=== PATIENT | female | born 1955 | race Caucasian/White ===

== ENCOUNTER 2019-12-29 16:54 | Inpatient (IN) | payer BC ==
[~2019-12-29] VITALS: Ht 154.9 cm; Wt 50.3 kg
[2019-12-29] MEDS: NICOTINE 21MG/24HR 1 EA TRANSDERMAL TD SCH (09:00)
--- NOTE | 2019-12-29 17:53 | REPVR ---
PROCEDURE INFORMATION: Exam: XR Chest, 1 View Exam date and time: 12/29/2019 5:28 PM Age: 64 years old Clinical indication: Chest pain; Additional info: Dyspnea/cough TECHNIQUE: Imaging protocol: XR of the chest Views: 1 view. COMPARISON: No relevant prior studies available. FINDINGS: Lungs: Unremarkable. No consolidation. Pleural space: Unremarkable. No pleural effusion. No pneumothorax. Heart/Mediastinum: Cardiomegaly. Bones/joints: Unremarkable. IMPRESSION: 1. Cardiomegaly. 2. No acute findings. Electronically signed by: Jerod Wilson On 12/29/2019 17:53:16 PM
[2019-12-29 17:54] LABS: BASO % 0.1 % (0.0-1.0); EOS % 0.1 % (0.0-3.0); HEMATOCRIT 39.2 % (36.0-47.0); HEMOGLOBIN 14.3 g/dl (12.0-15.5); LYMPH # 1.7 10^3/uL (1.5-5.0); MEAN CORPUSCULAR HEMOGLOBIN 32.6 pg (27.0-33.0); MEAN CORPUSCULAR HGB CONC 36.5 g/dl (32.0-36.5); MEAN CORPUSCULAR VOLUME 89.5 fl (80.0-96.0); MONO # 0.8 10^3/uL (0.0-0.8); MONO % 4.5 % (0.0-5.0); NEUTROPHILS # 14.3 10^3/uL (1.5-8.5); NEUTROPHILS % 84.5 % (36.0-66.0); PLATELET COUNT, AUTOMATED 399 10^3/uL (150-450); RED BLOOD COUNT 4.38 10^6/uL (4.00-5.40)
[2019-12-29] MEDS ORDERED: POTASSIUM CHLORIDE 10 MEQ SR TABLET PO ONE (18:00)
[2019-12-29] MEDS ORDERED: NS 1,000 ML IV SCH (18:00)
[2019-12-29] MEDS ORDERED: PRED20TA PO (18:11)
[2019-12-29] MEDS ORDERED: LISI20TA35 PO (18:11)
[2019-12-29] MEDS ORDERED: DOXY100C PO (18:11)
[2019-12-29] MEDS ORDERED: SYMB16INH INH (18:11)
[2019-12-29] MEDS ORDERED: ALBU8.5H INH (18:11)
[2019-12-29] MEDS ORDERED: BUPR150T5 PO (18:11)
[2019-12-29] MEDS ORDERED: ISOS60TA2 PO (18:11)
[2019-12-29] MEDS ORDERED: ALBU83IN INH (18:11)
[2019-12-29] MEDS ORDERED: NICO1DIS10 TOP (18:11)
[2019-12-29] MEDS ORDERED: CARV25TA PO (18:11)
[2019-12-29] MEDS ORDERED: AMLO1TAB24 PO (18:11)
[2019-12-29] MEDS ORDERED: ELIQ2.5T PO (18:11)
[2019-12-29] MEDS ORDERED: DRON40TA PO (18:11)
[2019-12-29 18:24] LABS: MAGNESIUM LEVEL 2.3 MG/DL (1.8-2.4); THYROID STIMULATING HORMONE 0.207 uIU/ML (0.358-3.740)
[2019-12-29] MEDS ORDERED: NICO21DI31 TD (18:33)
[2019-12-29] MEDS ORDERED: ACET25TA12 PO (18:33)
[2019-12-29 18:42] LABS: OSMOLALITY SERUM 261 MOSM/KG (280-301)
[2019-12-29] MEDS ORDERED: MAALOX 30 ML SUSP *UDC PO PRN (19:30)
[2019-12-29] MEDS ORDERED: MOM 30ML SUSPENSION UDC PO PRN (19:30)
[2019-12-29] MEDS ORDERED: ACETAMINOPHEN TAB 650MG DOSE (2X325MG) PO PRN (19:30)
--- NOTE | 2019-12-29 19:37 | HPEPDOC ---
[facility] Medical History & Physical Date of Admission Dec 29, 2019 Date of Service: Dec 29, 2019 Other Provider Niki Meeks Attending Physician: DYLAN GRIFFIN MD History and Physical TIME OF SERVICE: 8:10 PM CHIEF COMPLAINT:, Shortness of breath HISTORY OF PRESENT ILLNESS: This 64-year-old female presented to her primary care provider's office for evaluation of worsening, shortness of breath. At her baseline she has shortness of breath and a dry cough due to COPD. Over the last 10 days the shortness of breath has become so severe that she has difficulties talking without having to pause to take a breath and her cough is now productive of yellow sputum. She also has mid, 8 out of 10 in severity, chest pain that's worse when she coughs, nausea, muscle aches, poor appetite, admits to being less active than usual. She denies having fevers, chills, vomiting, diarrhea, runny nose, sick contacts or swelling in any of her legs, falling or having seizures. She was last hospitalized for acute COPD of 2018 at [facility] and was told she had hyponatremia but is not sure what the cause was. REVIEW OF SYSTEMS: 12 point review of systems negative except as listed in HPI PAST MEDICAL/ SURGICAL HISTORY: COPD She was last hospitalized in October 2018 Atrial fibrillation on Eliquis Cardiomyopathy Left bundle-branch block Chronic hypertension Plantar fasciitis Cervical spine surgery Rotator cuff surgery SOCIAL HISTORY: She currently smokes She doesn't drink alcohol She doesn't do drugs She moved to the area in June FAMILY HISTORY: Cancer CVA CAD Diabetes ALLERGIES: Please see below. HOME MEDICATIONS: Please see below. PHYSICAL EXAMINATION: Vital Signs Date Time Temp Pulse Resp B/P (MAP) Pulse Ox O2 Delivery O2 Flow Rate FiO2 12/29/19 16:56 97.9 41 18 166/84 (111) 98 Room Air GEN: well nourished / well developed/ NAD INTEGUMENT: She doesn't have facial plethora HEENT: lips are not cyanotic / She doesn't have pursed lip breathing / trachea midline CVS: RRR/ no P-pulmonale / distant heart sounds / radial pulses equal and intact bilaterally / no lower extremity edema LUNGS: there is no nasal flaring / she is currently not able to speak full sentences without stopping to take a breath / she is not using accessory muscles / there is normal respiratory expansion/ her breath sounds are diminished ABDOMEN: flat / soft & not tender with palpation MSK/EXTREMITIES: NCAT / no finger nail clubbing / chest pain not reproducible w palpation of the chest NEURO: CN 2-12 are grossly intact / speech is not dysarthric PSYCH: alert and or iented to person place and time/ able to understand and follow all commands LABORATORY DATA: 12/29/19 17:41 Immature Granulocyte % (Auto) 0.8, Neutrophils (%) (Auto) 84.5H, Lymphocytes (%) (Auto) 10.0L, Monocytes (%) (Auto) 4.5, Eosinophils (%) (Auto) 0.1, Basophils (%) (Auto) 0.1, Neutrophils # (Auto) 14.3H, Lymphocytes # (Auto) 1.7, Monocytes # (Auto) 0.8, Eosinophils # (Auto) 0.0, Basophils # (Auto) 0.0, Nucleated Red Blood Cells % (auto) 0.0, Osmolality 261L, Magnesium Level 2.3, Thyroid S timulating Hormone (TSH) 0.207L 12/29/19 17:44: POC Glucose (Misc Panel) 110H, POC Sodium (Misc Panel) 124L, POC Potassium (Misc Panel) 3.2L, POC Chloride (Misc Panel) 84L, POC Total CO2 (Misc Panel) 26.0, POC Blood Urea Nitrogen (Misc Panel 20, POC Ionized Calcium (Misc Panel) 4.2L, POC Creatinine (Misc Panel) 0.8, POC Hematocrit (Misc Panel) 43.0 12/29/19 17:52: POC Troponin I (Misc) 0.00 IMAGING: Chest xray "IMPRESSION: 1. Cardiomegaly. 2. No acute findings." MICROBIOLOGY: n/a ASSESSMENT: Ms. Magallon is a 63-year-old female with a history of COPD, atrial fibrillation, cardiomyopathy, LBBB, HTN, and chronic hyponatremia who will be admitted for evaluation of hyponatremia and management of acute COPD. PLAN: 1. Chronic Asymptomatic Hyponatremia She is euvolemic and has hypotonic hyponatremia, with serum osmolality <280 Since her urine Na > 20 this points towards renal salt loss in the setting of diuretic use or ACEI She is currently on HTCZ and an ACEI Plan: admit to med surg/ frequent neurochecks / f/u Is/ Os / stop 0.9% NS pending repeat BMP / stop lisinopril/HTCZ / the day time team may consider a Nephrology consult if her Na doesn't improve with holding this meds / placed request for staff to obtain records from [facility] 2. Mild Acute COPD Cause TBD Per pt and ER staff COVID-19 test done at an outside facility was negative PNA r/o as trigger bc her chest xray is normal PE less likely bc she hasn't had leg swelling and is on AC BAP-65 Score to predict mortality in acute COPD = Class I = 0.3% in hospital mortality Plan: f/u sputum cx / supplemental O2 / elevated HOB/ aspiration precautions / Dunebs Q6H, Albuterol Q4HP/ solumedrol now then switch to Prednisone + PPI tomorrow / will give Levofloxacin because the patient has a change in sputum co lizeth / Tessalon Pearls / the day time team can refer her to [employer] [facility] [facility] locally to establish care and for PFTs / will place a referral for Pulmonary Rehab which has been shown to reduce mortality if she attends within 90 days of discharge 3. Chest Pain Likely pleuritic EKG showed LBBB w frequent PVCs He has a hx of LBBB Plan: telemetry / f/u EKG, trops 4. Hypokalemia Elizabeth 2/2 increased albuterol use She received KCl in the ER Plan: f/u K & Mag 5. Leukocytosis Likely 2/2 steroids Plan: monitor vitals and f/u repeat CBC 6. Atrial fibrillation Plan: c/w Elquis 7. Chronic hypertension Plan: increase doses amlodipine from 5 daily to 10mg daily & carvedilol from 25 BID to 50 BID / hold HTCZ and lisinopril DVT PROPHYLAXIS: n/a on AC DISPOSITION: elizabeth home after more than 2 midnight's stay Home Medications Scheduled Acetaminophen/Diphenhydramine (Acetaminophen Pm Caplet) 1 Each Tablet, 3 TAB PO QHS Amlodipine Besylate (Amlodipine Besylate) 5 Mg Tablet, 5 MG PO DAILY Apixaban (Eliquis) 2.5 Mg Tablet, 2.5 MG PO BID Budesonide/Formoterol (Symbicort 160-4.5 Mcg Inhaler) 6 Gm Hfa.aer.ad, 2 PUFFS INH BID Bupropion Hcl (Bupropion HCl Sr) 150 Mg Tab.sr.12h, 150 MG PO BID Carvedilol (Carvedilol) 25 Mg Tablet, 25 MG PO BID Doxycycline Hyclate (Doxycycline Hyclate) 100 Mg Capsule, 100 MG PO BID FOR 10 DAYS, STARTED 12/27 Dronedarone (Multaq) 400 Mg Tablet, 400 MG PO BID Isosorbide Mononitrate (Isosorbide Mononitrate ER) 60 Mg Tab.er.24h, 60 MG PO DAILY Lisinopril/Hydrochlorothiazide (Lisinopril-Hctz 20-12.5 mg Tab) 1 Each Tablet, 1 TAB PO DAILY Prednisone (Prednisone) 20 Mg Tablet, 1 DOSE PO TAPER 60MG DAILY X 3 DAYS 40MG DAILY X 3 DAYS 20MG DAILY X 3 DAYS STARTED 12/27 Scheduled PRN Albuterol Sulf (Albuterol Sulfate) 2.5 Mg/3 Ml Vial.neb, 1 VIAL INH Q6H PRN for SHORTNESS OF BREATH Albuterol Sulfate (Albuterol Sulfate Hfa) 8.5 Gm Hfa.aer.ad, 1 PUFF INH QID PRN for SOB/COUGH Nicotine (Nicotine Patch) 21 Mg Patch.td24, 21 MG TD DAILY PRN for NICOTINE WITHDRAWAL Allergies Coded Allergies: adhesive (Verified Allergy, Intermediate, RED WELTS, 12/29/19) naproxen (Verified Allergy, Intermediate, HIVES, 12/29/19) aspirin (Verified Adverse Reaction, Mild, nausea/vomiting, 12/29/19) oxycodone (Verified Adverse Reaction, Mild, N/V, 12/29/19) A-FIB/CHADSVASC A-FIB History Current/History of A-Fib/PAF?: No Current PO Anticoag Therapy: No DYLAN GRIFFIN MD Dec 29, 2019 19:37
[2019-12-29 20:03] LABS: OSMOLALITY URINE 154 MOSM/KG (500-800)
[2019-12-29 20:11] LABS: SODIUM,RANDOM URINE 28 MEQ/L
[2019-12-29 20:15] LABS: BLOOD UREA NITROGEN 20 MG/DL (7-18); CALCIUM LEVEL 9.4 MG/DL (8.8-10.2); CARBON DIOXIDE LEVEL 30 MEQ/L (21-32); CHLORIDE LEVEL 88 MEQ/L (98-107); CREATININE FOR GFR 0.83 MG/DL (0.55-1.30); GLOMERULAR FILTRATION RATE > 60.0 (>45); GLUCOSE, FASTING 106 MG/DL (70-100); POTASSIUM SERUM 3.5 MEQ/L (3.5-5.1); SODIUM LEVEL 125 MEQ/L (136-145)
[2019-12-29] MEDS ORDERED: RAMELTEON 8 MG TAB (ROZEREM) PO PRN (20:30)
[2019-12-29] MEDS ORDERED: ALBUTEROL SULFATE 2.5 MG/0.5 ML INH NEB SOLN NEB PRN (20:30)
[2019-12-29 20:37] LABS: CREATININE,RANDOM URINE < 13.0 MG/DL
[2019-12-29] MEDS: IPRATROPIUM 0.5MG/ALBUTEROL 2.5MG INH SOL UD 3ML (DUONEB) NEB SCH (20:54)
[2019-12-29] MEDS ORDERED: methylPREDNISolone 125MG 2ML VIAL IV ONE (21:00)
[2019-12-29] MEDS ORDERED: BENZONATATE 100 MG CAP PO PRN (21:00)
[2019-12-29] MEDS ORDERED: CARVedilol 12.5 MG TAB PO SCH (21:00)
[2019-12-29] MEDS: APIXABAN 2.5 MG TAB (ELIQUIS) PO SCH (21:26)
[2019-12-29] MEDS: CARVedilol 12.5 MG TAB PO SCH (21:26)
[2019-12-29 22:11] LABS: BLOOD UREA NITROGEN 16 MG/DL (7-18); CALCIUM LEVEL 9.2 MG/DL (8.8-10.2); CARBON DIOXIDE LEVEL 28 MEQ/L (21-32); CHLORIDE LEVEL 90 MEQ/L (98-107); CREATININE FOR GFR 0.84 MG/DL (0.55-1.30); GLOMERULAR FILTRATION RATE > 60.0 (>45); GLUCOSE, FASTING 159 MG/DL (70-100); POTASSIUM SERUM 3.2 MEQ/L (3.5-5.1); SODIUM LEVEL 127 MEQ/L (136-145); TROPONIN I < 0.02 NG/ML (< 0.10)
[2019-12-29 22:30] VITALS: BP 115/62
[2019-12-29] MEDS: DRONEDARONE 400 MG TAB (MULTAQ) PO SCH (23:44)
[2019-12-29] MEDS: buPROPion **SR TABLET** (ZYBAN) 150MG PO SCH (23:44)
[2019-12-30] MEDS ORDERED: POTASSIUM CHLORIDE 10 MEQ SR TABLET PO ONE (03:30)
[2019-12-30 04:00] VITALS: BP 117/65
[2019-12-30] MEDS: IPRATROPIUM 0.5MG/ALBUTEROL 2.5MG INH SOL UD 3ML (DUONEB) NEB SCH ×3 (04:34→13:23)
[2019-12-30 05:41] LABS: HEMATOCRIT 36.7 % (36.0-47.0); HEMOGLOBIN 13.1 g/dl (12.0-15.5); MEAN CORPUSCULAR HEMOGLOBIN 32.5 pg (27.0-33.0); MEAN CORPUSCULAR HGB CONC 35.7 g/dl (32.0-36.5); MEAN CORPUSCULAR VOLUME 91.1 fl (80.0-96.0); PLATELET COUNT, AUTOMATED 320 10^3/uL (150-450); RED BLOOD COUNT 4.03 10^6/uL (4.00-5.40)
[2019-12-30] MEDS ORDERED: LevoFLOXacin 750 MG TABLET PO SCH (06:00)
[2019-12-30 06:10] LABS: BLOOD UREA NITROGEN 13 MG/DL (7-18); CALCIUM LEVEL 9.1 MG/DL (8.8-10.2); CARBON DIOXIDE LEVEL 27 MEQ/L (21-32); CHLORIDE LEVEL 93 MEQ/L (98-107); CREATININE FOR GFR 0.73 MG/DL (0.55-1.30); GLOMERULAR FILTRATION RATE > 60.0 (>45); GLUCOSE, FASTING 178 MG/DL (70-100); MAGNESIUM LEVEL 2.2 MG/DL (1.8-2.4); POTASSIUM SERUM 3.7 MEQ/L (3.5-5.1); SODIUM LEVEL 128 MEQ/L (136-145); TROPONIN I < 0.02 NG/ML (< 0.10)
[2019-12-30] MEDS: NICOTINE 21MG/24HR 1 EA TRANSDERMAL TD SCH ×2 (08:36→09:00)
[2019-12-30 08:37] VITALS: BP 117/65
[2019-12-30] MEDS: APIXABAN 2.5 MG TAB (ELIQUIS) PO SCH (08:37)
[2019-12-30] MEDS: buPROPion **SR TABLET** (ZYBAN) 150MG PO SCH (08:37)
[2019-12-30] MEDS: CARVedilol 12.5 MG TAB PO SCH (08:38)
[2019-12-30] MEDS: DRONEDARONE 400 MG TAB (MULTAQ) PO SCH (08:38)
[2019-12-30] MEDS ORDERED: PANTOPRAZOLE 40MG TAB (PROTONIX) PO SCH (09:00)
[2019-12-30] MEDS ORDERED: predniSONE 20 MG TAB PO SCH (09:00)
[2019-12-30] MEDS ORDERED: ISOSORBIDE MON. (IMDUR) 60 MG XR TAB PO SCH (09:00)
[2019-12-30] MEDS ORDERED: ENOXAPARIN 40MG/0.4ML SYRINGE (J1650 PER 10MG) SC SCH (09:00)
[2019-12-30] MEDS ORDERED: amLODIPine 5 MG TAB PO SCH ×2 (09:00)
--- NOTE | 2019-12-30 09:15 | ECGEPIP ---
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
[2019-12-30 09:43] LABS: CORTISOL AM 14.4 UG/DL (4.3-22.4)
[2019-12-30] MEDS ORDERED: CARV25TA PO (10:06)
[2019-12-30] MEDS ORDERED: BENZ-18 PO (10:06)
--- NOTE | 2019-12-30 19:05 | DS.PDOC ---
Discharge Summary General Date of Admission Dec 29, 2019 at 19:30 Date of Discharge Dec 30, 2019 Attending Physician: MAKEDA ARGUELLES DO Discharge Summary PROCEDURES PERFORMED DURING STAY: None. ADMITTING DIAGNOSES: 1. Hyponatremia. 2. COPD exacerbation 3. Hypokalemia 4. Chest pain 5. Leukocytosis 6. A. fib 7. Hypertension DISCHARGE DIAGNOSES: 1. Hyponatremia. 2. COPD exacerbation 3. Hypokalemia 4. Noncardiac chest pain 5. Steroid induced leukocytosis 6. A. fib 7. Hypertension COMPLICATIONS/CHIEF COMPLAINT: Hyponatremia. HISTORY OF PRESENT ILLNESS: Mrs. Magallon is a 64-year-old female who presented to her primary care provider's office for evaluation of dyspnea. For the past 10 days she's been having worsening dyspnea with a cough that is now productive, producing yellow sputum. She also has 8 out of 10 chest pain that is worse when she coughs. She also complains of muscle aches, poor appetite, and fatigue. She is given a dose of IV Solu-Medrol. HOSPITAL COURSE: During her admission, the lisinopril/hydrochlorothiazide combination was discontinued. Her sodium slowly started to improve. In addition her hypokalemia was corrected. This morning she is feeling well. Dyspnea and cough improved. We discussed hyponatremia and hydrochlorothiazide. Recommended that she does not continue lisinopril/hydrochlorothiazide combination. While here she was on an increased dose of Coreg. She is concerned of a cough associated with an increased dose. Her blood pressure was on the lower side, so I decreased her dose on discharge. She denied any fever or chills, lightheadedness or dizziness, chest pain, abdominal pain, dysuria, or diarrhea. She felt ready for home and was subsequently discharged. DISCHARGE MEDICATIONS: Please see below. ALLERGIES: Please see below. PHYSICAL EXAMINATION ON DISCHARGE: VITAL SIGNS: Please see below. GENERAL: Comfortable, in no apparent distress. HEENT: Head normocephalic/atraumatic, EOMI, sclera clear. NECK: Supple RESPIRATORY: Coarse breath sounds CARDIOVASCULAR: Regular rate and rhythm. ABDOMEN: Soft, nontender, no guarding or rebound tenderness. Normal bowel sounds. MUSCLE SKELETAL: Muscle strength 5/5 in all extremities. NEUROLOGICAL: CN 312 grossly intact, no focal deficits noted. PSYCHOLOGICAL: Normal mood and affect LABORATORY DATA: Please see below. IMAGING: Chest x-ray 1. Cardiomegaly. 2. No acute findings PROGNOSIS: Stable ACTIVITY: As tolerated. DIET: Regular DISCHARGE PLAN: Home DISPOSITION: 01 Home, Self-Care. DISCHARGE INSTRUCTIONS: 1. With her PCP within a week 2. Do not take the lisinopril/hydrochlorothiazide combination 3. Can continue taking steroids and doxycycline at home. DISCHARGE CONDITION: Stable. Total time spent on discharge planning discharge summary and med reconciliation 35 minutes Vital Signs/I&Os Vital Signs Date Time Temp Pulse Resp B/P (MAP) Pulse Ox O2 Delivery O2 Flow Rate FiO2 12/30/19 08:38 60 12/30/19 08:37 117/65 12/30/19 04:00 97.8 18 96 Room Air I&O- Last 24 Hours up to 6 AM 12/30/19 06:00 Intake Total 1080 ml Output Total 1525 ml Balance -445 ml Laboratory Data Labs 24H Laboratory Tests 2 12/29/19 19:41: Urine Random Osmolality 154L, Urine Random Creatinine < 13.0, Urine Random Sodium 28 12/29/19 21:21: Anion Gap 9, Glomerular Filtration Rate > 60.0, Calcium Level 9.2, Troponin I < 0.02 12/30/19 05:25: Anion Gap 8, Glomerular Filtration Rate > 60.0, Calcium Level 9.1, Troponin I < 0.02, Nucleated Red Blood Cells % (auto) 0.0, Magnesium Level 2.2, Cortisol AM Sample 14.4 12/30/19 09:20: Troponin I < 0.02 CBC/BMP Laboratory Tests 12/29/19 21:21 12/30/19 05:25 Discharge Medications Scheduled Acetaminophen/Diphenhydramine (Acetaminophen Pm Caplet) 1 Each Tablet, 3 TAB PO QHS, (Reported) Amlodipine Besylate (Amlodipine Besylate) 5 Mg Tablet, 5 MG PO DAILY, (Reported) Apixaban (Eliquis) 2.5 Mg Tablet, 2.5 MG PO BID, (Reported) Budesonide/Formoterol (Symbicort 160-4.5 Mcg Inhaler) 6 Gm Hfa.aer.ad, 2 PUFFS INH BID, (Reported) Bupropion Hcl (Bupropion HCl Sr) 150 Mg Tab.sr.12h, 150 MG PO BID, (Reported) Carvedilol (Carvedilol) 25 Mg Tablet, 25 MG PO BID, (Reported) Doxycycline Hyclate (Doxycycline Hyclate) 100 Mg Capsule, 100 MG PO BID, (Reported) FOR 10 DAYS, STARTED 12/27 Dronedarone (Multaq) 400 Mg Tablet, 400 MG PO BID, (Reported) Isosorbide Mononitrate (Isosorbide Mononitrate ER) 60 Mg Tab.er.24h, 60 MG PO DAILY, (Reported) Prednisone (Prednisone) 20 Mg Tablet, 1 DOSE PO TAPER, (Reported) 60MG DAILY X 3 DAYS 40MG DAILY X 3 DAYS 20MG DAILY X 3 DAYS STARTED 12/27 Scheduled PRN Albuterol Sulf (Albuterol Sulfate) 2.5 Mg/3 Ml Vial.neb, 1 VIAL INH Q6H PRN for SHORTNESS OF BREATH, (Reported) Albuterol Sulfate (Albuterol Sulfate Hfa) 8.5 Gm Hfa.aer.ad, 1 PUFF INH QID PRN for SOB/COUGH, (Reported) Benzonatate (Benzonatate) 100 Mg Capsule, 200 MG PO Q8H PRN for cough Nicotine (Nicotine Patch) 21 Mg Patch.td24, 21 MG TD DAILY PRN for NICOTINE WITHDRAWAL, (Reported) Allergies Coded Allergies: adhesive (Verified Allergy, Intermediate, RED WELTS, 12/29/19) naproxen (Verified Allergy, Intermediate, HIVES, 12/29/19) aspirin (Verified Adverse Reaction, Mild, nausea/vomiting, 12/29/19) oxycodone (Verified Adverse Reaction, Mild, N/V, 12/29/19) MAKEDA ARGUELLES DO Dec 30, 2019 19:05
== END 2019-12-30 14:45 | disposition home or self-care (01) | DRG 140 ==
LOC: M ED 16:54 → M ED INP 19:30 → M PCU 22:27
PROVIDERS: ADMIT Internal Medicine; ATTEND Internal Medicine
DX: J44.1 Chronic obstructive pulmonary disease with (acute) exacerbation (principal); I42.9 Cardiomyopathy, unspecified; I48.91 Unspecified atrial fibrillation; E87.1 Hypo-osmolality and hyponatremia; E87.6 Hypokalemia; I10 Essential (primary) hypertension; D72.829 Elevated white blood cell count, unspecified; R10.9 Unspecified abdominal pain; Z79.899 Other long term (current) drug therapy; Z88.5 Allergy status to narcotic agent; Z88.6 Allergy status to analgesic agent; Z88.8 Allergy status to other drugs, medicaments and biological substances; Z79.01 Long term (current) use of anticoagulants; F17.200 Nicotine dependence, unspecified, uncomplicated; I44.7 Left bundle-branch block, unspecified; M72.2 Plantar fascial fibromatosis

== ENCOUNTER 2020-11-07 20:49 | Emergency (ER) | payer BC ==
[~2020-11-07] VITALS: Ht 153.7 cm; Wt 51.4 kg
[~2020-11-07 20:49] MED LIST: ACET25TA12 PO; ALBU8.5H INH; ALBU83IN INH; AMLO1TAB24 PO; BENZ-18 PO; BUPR150T5 PO; CARV25TA PO; DOXY100C3 PO; DRON400T PO; ELIQ2.5T PO; ISOS1TAB36 PO; LISI20TA35 PO; NICO1DIS10 TOP; NICO1DIS12 TD; PRED20TA PO; SYMB16INH INH
[2020-11-07 21:50] LABS: BASO # 0.1 10^3/uL (0.0-0.2); BASO % 0.8 % (0.0-1.0); EOS # 0.1 10^3/uL (0.0-0.5); HEMATOCRIT 37.1 % (36.0-47.0); HEMOGLOBIN 13.4 g/dl (12.0-15.5); LYMPH # 2.7 10^3/uL (1.5-5.0); LYMPH % 29.7 % (24.0-44.0); MEAN CORPUSCULAR HEMOGLOBIN 32.5 pg (27.0-33.0); MEAN CORPUSCULAR HGB CONC 36.1 g/dl (32.0-36.5); MONO # 0.8 10^3/uL (0.0-0.8); NEUTROPHILS # 5.3 10^3/uL (1.5-8.5); NEUTROPHILS % 59.2 % (36.0-66.0); PLATELET COUNT, AUTOMATED 295 10^3/uL (150-450); RED BLOOD COUNT 4.12 10^6/uL (4.00-5.40); WHITE BLOOD COUNT 8.9 10^3/uL (4.0-10.0)
[2020-11-07 22:14] LABS: BLOOD UREA NITROGEN 5 MG/DL (7-18); CALCIUM LEVEL 8.5 MG/DL (8.8-10.2); CARBON DIOXIDE LEVEL 27 MEQ/L (21-32); CHLORIDE LEVEL 89 MEQ/L (98-107); CK-MB VALUE MASS 1.1 NG/ML (<3.6); CPK CREATINE PHOSPHOKINASE 87 U/L (26-192); CREATININE FOR GFR 0.45 MG/DL (0.55-1.30); GLOMERULAR FILTRATION RATE > 60.0 (>45); GLUCOSE, FASTING 78 MG/DL (70-100); MB/CK RELATIVE INDEX 1.26 (< OR =4); POTASSIUM SERUM 3.3 MEQ/L (3.5-5.1); SODIUM LEVEL 124 MEQ/L (136-145); TROPONIN I < 0.02 NG/ML (< 0.10)
[2020-11-07] MEDS ORDERED: NS 1,000 ML IV ONE (22:30)
--- NOTE | 2020-11-07 22:56 | REPVR ---
PROCEDURE INFORMATION: Exam: XR Chest Exam date and time: 11/07/20 (9:26pm) Age: 64 years old Clinical indication: Chest pain TECHNIQUE: Imaging protocol: Portable CXR Views: 1 view COMPARISON: Portable CXR of 12/29/19 FINDINGS: Lungs: Unremarkable. No consolidation. Pleural spaces: Unremarkable. No pleural effusions. No pneumothorax. Heart/Mediastinum: Unremarkable. No cardiomegaly. Bones/joints: Suture anchor projects over the right humeral head. IMPRESSION: No acute findings. Lung carter remain clear. Electronically signed by: Annika Serrano On 11/07/2020 22:56:31 PM
[2020-11-07 23:45] VITALS: BP 128/74
[2020-11-07] MEDS ORDERED: POTASSIUM CHLORIDE 10 MEQ SR TABLET PO ONE (23:45)
--- NOTE | 2020-11-08 06:48 | ECGEPIP ---
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
== END 2020-11-07 23:58 | disposition home or self-care (01) ==
LOC: M ED 22:17
DX: R11.0 Nausea (principal); E87.1 Hypo-osmolality and hyponatremia; E87.6 Hypokalemia; I44.7 Left bundle-branch block, unspecified; I48.91 Unspecified atrial fibrillation; I10 Essential (primary) hypertension; E78.5 Hyperlipidemia, unspecified; J44.9 Chronic obstructive pulmonary disease, unspecified; Z95.5 Presence of coronary angioplasty implant and graft; F17.200 Nicotine dependence, unspecified, uncomplicated; Z79.01 Long term (current) use of anticoagulants; Z79.899 Other long term (current) drug therapy; Z88.8 Allergy status to other drugs, medicaments and biological substances; Z88.6 Allergy status to analgesic agent; Z88.5 Allergy status to narcotic agent; Z91.89 Other specified personal risk factors, not elsewhere classified

== ENCOUNTER → 2021-01-29 | Outpatient (CLI) | payer BC ==
--- NOTE | 2021-01-29 12:48 | REP ---
INDICATION: SMOKER. COMPARISON: None. TECHNIQUE: Axial noncontrast images from the thoracic inlet to the upper abdomen using low-dose lung screening technique (LDCT). As per the protocol only lung window images were sent to the read station for interpretation. FINDINGS: There are multiple scattered bilateral incidental calcified granulomas. There is a 4 mm size nodule in the left upper lobe. There is a somewhat rounded density in the right CP angle posteriorly which measures approximately 1 cm. This is seen in conjunction with other densities consistent with subsegmental atelectatic changes. Grossly, the mediastinum and pulmonary vj are within normal limits. Grossly, the imaged upper abdomen and imaged osseous structures are within normal limits. IMPRESSION: 1. The rounded appearing density seen in the right lung CP angle probably represents subsegmental atelectatic change, however, since are no priors comparison and according to the revised Fleischner society criteria a diagnostic contrast-enhanced CT examination of the chest is recommended in 3 months. 2. There is a 4 mm size nodule in the left upper lobe which represents a category [address] screening is recommended. 3. Multiple bilateral incidental calcified granulomas. <Electronically signed by Kike Yang > 01/29/21 [id number]
== END ==
LOC: M RAD 10:54
PROVIDERS: ATTEND Nurse Practitioner Adult Health
DX: Z12.2 Encounter for screening for malignant neoplasm of respiratory organs (principal); F17.218 Nicotine dependence, cigarettes, with other nicotine-induced disorders; R91.1 Solitary pulmonary nodule; J84.10 Pulmonary fibrosis, unspecified

== ENCOUNTER → 2021-08-02 | Outpatient (CLI) | payer BC ==
[~2021-08-02] MED LIST changes: +BUPR-71 PO; -BUPR150T5 PO
== END ==
LOC: M RAD 08:18
PROVIDERS: ATTEND Nurse Practitioner Adult Health
DX: R94.2 Abnormal results of pulmonary function studies (principal); R91.8 Other nonspecific abnormal finding of lung field; I70.0 Atherosclerosis of aorta; I25.10 Atherosclerotic heart disease of native coronary artery without angina pectoris

== ENCOUNTER → 2022-08-22 | Outpatient (CLI) | payer MEDICARE ==
[~2022-08-22] MED LIST changes: +ALBU2.5V10 INH; -ALBU83IN INH
== END ==
LOC: M RAD 09:41
PROVIDERS: ATTEND Nurse Practitioner Adult Health
DX: F17.218 Nicotine dependence, cigarettes, with other nicotine-induced disorders (principal)

== ENCOUNTER → 2023-01-07 | Outpatient (CLI) | payer MEDICARE | LOC: M WHC 12:23 | PROVIDERS: ATTEND Physician Assistant Medical | DX: Z12.31 Encounter for screening mammogram for malignant neoplasm of breast (principal); N95.9 Unspecified menopausal and perimenopausal disorder; Z80.3 Family history of malignant neoplasm of breast ==

== ENCOUNTER → 2023-01-07 | Outpatient (CLI) | payer MEDICARE | LOC: M WHC 12:24 | PROVIDERS: ATTEND Orthopaedic Surgery | DX: M54.50 Low back pain, unspecified (principal); M85.89 Other specified disorders of bone density and structure, multiple sites ==

== ENCOUNTER → 2023-04-23 | Outpatient (CLI) | payer MEDICARE | LOC: M PAIN 13:00 | PROVIDERS: ATTEND Nurse Practitioner Family | DX: M79.18 Myalgia, other site (principal); G89.29 Other chronic pain; J44.9 Chronic obstructive pulmonary disease, unspecified; I48.91 Unspecified atrial fibrillation; I42.9 Cardiomyopathy, unspecified; F17.200 Nicotine dependence, unspecified, uncomplicated; Z79.01 Long term (current) use of anticoagulants; Z79.899 Other long term (current) drug therapy; Z88.0 Allergy status to penicillin; Z88.5 Allergy status to narcotic agent ==

== ENCOUNTER → 2023-05-28 | Outpatient (CLI) | payer MEDICARE ==
[~2023-05-28] MED LIST changes: +TRIAMCINOLONE ACETONIDE SUSP 40MG/ML 1ML VIAL As Ordered ONE
== END ==
LOC: M PAIN 11:00
PROVIDERS: ATTEND Anesthesiology
DX: M79.18 Myalgia, other site (principal); J44.9 Chronic obstructive pulmonary disease, unspecified; I48.91 Unspecified atrial fibrillation; I42.9 Cardiomyopathy, unspecified; F17.200 Nicotine dependence, unspecified, uncomplicated; Z79.899 Other long term (current) drug therapy; Z88.0 Allergy status to penicillin; Z88.6 Allergy status to analgesic agent
CPT/HCPCS: 20553; J0665; J3301

== ENCOUNTER → 2023-08-04 | Outpatient (CLI) | payer MEDICARE ==
[~2023-08-04] MED LIST changes: -TRIAMCINOLONE ACETONIDE SUSP 40MG/ML 1ML VIAL As Ordered ONE
== END ==
LOC: M PAIN 16:30
PROVIDERS: ATTEND Nurse Practitioner Family
DX: M79.10 Myalgia, unspecified site (principal); J44.9 Chronic obstructive pulmonary disease, unspecified; I48.91 Unspecified atrial fibrillation; I42.9 Cardiomyopathy, unspecified; Z79.01 Long term (current) use of anticoagulants; Z79.02 Long term (current) use of antithrombotics/antiplatelets; Z79.51 Long term (current) use of inhaled steroids; Z79.891 Long term (current) use of opiate analgesic; Z79.899 Other long term (current) drug therapy; Z88.1 Allergy status to other antibiotic agents; Z88.6 Allergy status to analgesic agent

== ENCOUNTER → 2023-09-14 | Outpatient (CLI) | payer MEDICARE | LOC: M RAD 14:55 | PROVIDERS: ATTEND Nurse Practitioner Adult Health | DX: Z12.2 Encounter for screening for malignant neoplasm of respiratory organs (principal); F17.218 Nicotine dependence, cigarettes, with other nicotine-induced disorders ==

== ENCOUNTER → 2023-10-16 | Outpatient (CLI) | payer MEDICARE ==
[~2023-10-16] MED LIST changes: +TRIAMCINOLONE ACETONIDE SUSP 40MG/ML 1ML VIAL As Ordered ONE
== END ==
LOC: M PAIN 16:00
PROVIDERS: ATTEND Anesthesiology
DX: M79.18 Myalgia, other site (principal); G89.29 Other chronic pain; J44.9 Chronic obstructive pulmonary disease, unspecified; I48.91 Unspecified atrial fibrillation; I42.9 Cardiomyopathy, unspecified; F17.200 Nicotine dependence, unspecified, uncomplicated; Z79.01 Long term (current) use of anticoagulants; Z79.899 Other long term (current) drug therapy; Z88.0 Allergy status to penicillin; Z88.6 Allergy status to analgesic agent
CPT/HCPCS: 20552; J0665; J3301

== ENCOUNTER → 2023-11-26 | Outpatient (CLI) | payer MEDICARE ==
[~2023-11-26] MED LIST changes: -TRIAMCINOLONE ACETONIDE SUSP 40MG/ML 1ML VIAL As Ordered ONE
== END ==
LOC: M PAIN 14:45
PROVIDERS: ATTEND Nurse Practitioner Family
DX: M79.18 Myalgia, other site (principal); M54.6 Pain in thoracic spine; J44.9 Chronic obstructive pulmonary disease, unspecified; I48.91 Unspecified atrial fibrillation; I42.9 Cardiomyopathy, unspecified; F17.200 Nicotine dependence, unspecified, uncomplicated; Z79.01 Long term (current) use of anticoagulants; Z79.899 Other long term (current) drug therapy; Z88.0 Allergy status to penicillin; Z88.6 Allergy status to analgesic agent

== ENCOUNTER → 2024-01-11 | Outpatient (CLI) | payer MEDICARE | LOC: M PAIN 16:45 | PROVIDERS: ATTEND Nurse Practitioner Family | DX: M47.814 Spondylosis without myelopathy or radiculopathy, thoracic region (principal); G89.29 Other chronic pain; J44.9 Chronic obstructive pulmonary disease, unspecified; I48.91 Unspecified atrial fibrillation; I42.9 Cardiomyopathy, unspecified; F17.200 Nicotine dependence, unspecified, uncomplicated; Z79.01 Long term (current) use of anticoagulants; Z79.899 Other long term (current) drug therapy; Z88.0 Allergy status to penicillin; Z88.6 Allergy status to analgesic agent ==

== ENCOUNTER → 2024-10-17 | Outpatient (CLI) | payer MEDICARE | LOC: M RAD 12:53 | PROVIDERS: ATTEND Nurse Practitioner Adult Health | DX: Z87.891 Personal history of nicotine dependence (principal) ==

== ENCOUNTER 2024-12-13 18:13 | Emergency (ER) | payer MEDICARE ==
[~2024-12-13] VITALS: Ht 152.4 cm; Wt 53.5 kg
[2024-12-13 18:56] LABS: BASO # 0.0 10^3/uL (0.0-0.2); BASO % 0.3 % (0.0-1.0); EOS # 0.0 10^3/uL (0.0-0.5); EOS % 0.1 % (0.0-3.0); LYMPH # 1.7 10^3/uL (1.5-5.0); LYMPH % 14.9 % (24.0-44.0); MONO # 0.3 10^3/uL (0.0-0.8); MONO % 2.7 % (2.0-8.0); NEUTROPHILS # 9.4 10^3/uL (1.5-8.5); NEUTROPHILS % 81.6 % (36.0-66.0); PLATELET COUNT, AUTOMATED 345 10^3/uL (150-450)
[2024-12-13 19:18] LABS: CK-MB VALUE MASS < 1.0 NG/ML (<3.6)
[2024-12-13 19:20] LABS: ALT/SGPT 16 U/L (7.0-40); AST/SGOT 16 U/L (<34); CALCIUM LEVEL 9.2 MG/DL (8.3-10.6); CARBON DIOXIDE LEVEL 30 MMOL/L (20-31); CHLORIDE LEVEL 89 MMOL/L (98-107); CPK CREATINE PHOSPHOKINASE 40 U/L (34-145); CREATININE FOR GFR 0.65 MG/DL (0.55-1.30); GLOMERULAR FILTRATION RATE > 90.0 (>45); POTASSIUM SERUM 3.2 MMOL/L (3.5-5.1); SODIUM LEVEL 125 MMOL/L (136-145)
[2024-12-13 19:22] LABS: INR 0.96
[2024-12-13 21:07] VITALS: TEMP 98.1
[2024-12-13 23:01] LABS: MAGNESIUM LEVEL 2.1 MG/DL (1.8-2.4)
[2024-12-13] MEDS ORDERED: ISOVUE-370 76% 100 ML VIAL As Ordered ONE (23:15)
[2024-12-14] MEDS: POTASSIUM CHLORIDE 10% LIQ 20MEQ/15ML UDC PO ONE (01:45)
[2024-12-14 01:55] LABS: CK-MB VALUE MASS < 1.0 NG/ML (<3.6)
[2024-12-14 01:58] LABS: CPK CREATINE PHOSPHOKINASE 31 U/L (34-145)
[2024-12-14 02:00] VITALS: BP 145/74
[2024-12-14 02:01] VITALS: O2SAT 93
== END 2024-12-14 02:39 | disposition left against medical advice (07) ==
LOC: M ED 18:13
DX: E87.1 Hypo-osmolality and hyponatremia (principal); E87.6 Hypokalemia; I44.7 Left bundle-branch block, unspecified; I45.81 Long QT syndrome; J44.9 Chronic obstructive pulmonary disease, unspecified; I10 Essential (primary) hypertension; F17.200 Nicotine dependence, unspecified, uncomplicated; Z86.79 Personal history of other diseases of the circulatory system; Z88.6 Allergy status to analgesic agent; Z88.5 Allergy status to narcotic agent; Z91.048 Other nonmedicinal substance allergy status; Z79.52 Long term (current) use of systemic steroids; Z79.1 Long term (current) use of non-steroidal anti-inflammatories (NSAID); Z79.01 Long term (current) use of anticoagulants; Z79.899 Other long term (current) drug therapy; Z53.9 Procedure and treatment not carried out, unspecified reason
CPT/HCPCS: 36415; 71275; 80047; 80048; 80076; 82550; 82553; 83690; 83735; 83880; 84484; 85025; 85610; 93005; 99285; Q9967